=== PATIENT | male | born 1995 | race Caucasian/White ===

== ENCOUNTER 2018-05-12 17:05 | Emergency (ER) | payer BC ==
--- NOTE | 2018-05-12 17:14 | ER Report ---
History and Physical Time Seen By MD: 17:14 Hx. of Stated Complaint: pt has had bumb on the back of head for 3 years, thought it was a zit at first. still hasnt gone away HPI/ROS CHIEF COMPLAINT: Bump on back of head HISTORY OF PRESENT ILLNESS: 22-year-old male patient presents to emergency room with complaint of a bump on the back of his head. Patient states that he has had this for the past 3 years. He states that it has not caused him any problems, he states is not painful, he denies any changes in that time. Patient denies any fevers, chills, nausea, vomiting or diarrhea. Patient states that he became more concerned when he recently saw his dentist who did palpate his neck and said that the lump on the back of his head was normal. Allergies: Coded Allergies: No Known Drug Allergies (Unverified , 05/12/18) Past Medical/Surgical History Patient denies any pertinent medical or surgical history. Reviewed Nurses Notes: Yes Constitutional Vital Sign - Last 24 Hours 05/12/18 05/12/18 17:12 18:00 Temp 98.0 Pulse 63 Resp 14 B/P (MAP) 129/72 118/78 (91) Pulse Ox 96 O2 Delivery Room Air Physical Exam General appearance: Alert no distress. Respiratory: Chest is non tender, lungs are clear to auscultation. Cardiac: Regular rate and rhythm. Skin: Patient does have a lump located on the back of head, unable to ascertain whether it is a enlarged lymph node or sebaceous cyst. DIFFERENTIAL DIAGNOSIS: After history and physical exam differential diagnosis was considered for sebaceous cyst, enlarged lymph node. Medical Decision Making EKG/Imaging Imaging EXAMINATION: Ultrasound of the left posterior neck 05/12/2018 5:19 PM HISTORY: lump on the back of neck x3 years COMPARISON: None FINDINGS: Imaging of the area of palpable concern along the back of the neck on the left was done. There is a fairly smoothly marginated hypoechoic nodule measuring 1.1 x 0.6 x 0.9 cm. This deforms the undersurface of the skin is probably dermal in origin. This does not have the hilus of a lymph node. IMPRESSION: 1.1 cm hypoechoic nodule along the undersurface of the skin in the area of palpable concern in the left posterior neck. Based on location and appearance a sebaceous cyst or other dermal focus such as a dermal inclusion cyst would be favored. Report Dictated By: Smith Ness MD at 05/12/2018 5:58 PM Report E-Signed By: Smith Ness MD at 05/12/2018 6:00 PM ED Course/Re-evaluation ED Course Patient was admitted to an exam room, history and physical were obtained. Differential diagnoses were considered. On examination lungs are clear, heart is regular. Patient does have a nodule noted on the back of the head measuring approximately half a centimeter in diameter. An ultrasound was done to differentiate between a lymph node and a sebaceous cyst. That was more indicative of a sebaceous cyst or a dermoid cyst. I discussed the results with the patient. We discussed doing an I&D of the cyst. Patient was in agreement with that. That was done as described below. Patient tolerated procedure well. We will go ahead and discharge him home at this time. He is to follow-up with his primary care provider with any concerns. He is return to emergency room if condition worsens. Patient is to monitor for any signs of redness or infection. Patient verbalized understanding and agreement with plan. Procedure: Incision and drainage. The patient's cyst was located on the back of the head. I obtained verbal consent from the patient to drain the abscess who was informed about the po ssibility of bleeding and pain. The abscess was incised with a scalpel and a large amount of sebaceous material was expressed. The patient tolerated the procedure well. The procedure was performed by myself. Decision to Disposition Date: May 12, 2018 Decision to Disposition Time: 18:17 Depart Departure Latest Vital Signs Vital Signs Date Time Temp Pulse Resp B/P (MAP) Pulse Ox O2 Delivery O2 Flow Rate FiO2 05/12/18 18:00 118/78 (91) 05/12/18 17:12 98.0 63 14 96 Room Air Impression: Primary Impression: Sebaceous cyst Condition: Improved Disposition: HOME OR SELF-CARE Patient Instructions: Sebaceous cyst, not infected Additional Instructions: Keep area clean. Monitor for signs of infection; redness, swelling, heat, discharge, increasing pain or red streaking. Follow up if they occur. Follow up with your primary care provider as needed. Get plenty of rest. Take Tylenol or Ibuprofen as needed for pain. KELSIE UGARTE May 12, 2018 17:14
[2018-05-12 18:00] VITALS: BP 118/78
--- NOTE | 2018-05-12 18:04 | RADIOLOGY IMAGING REPORT ---
FACILITY: [facility] PATIENT NAME: Brayan Solares : 1995 MR: [id number] V: [id number] EXAM DATE: ORDERING PHYSICIAN: KELSIE UGARTE TECHNOLOGIST: Location: [facility] - [place], [place] Patient: Brayan Solares : 1995 Visit/Account:[id number] Date of Sevice: 05/12/2018 EXAMINATION: Ultrasound of the left posterior neck 05/12/2018 5:19 PM HISTORY: lump on the back of neck x3 years COMPARISON: None FINDINGS: Imaging of the area of palpable concern along the back of the neck on the left was done. T here is a fairly smoothly marginated hypoechoic nodule measuring 1.1 x 0.6 x 0.9 cm. This deforms the undersurface of the skin is probably dermal in origin. This does not have the hilus of a lymph node. IMPRESSION: 1.1 cm hypoechoic nodule along the undersurface of the skin in the area of palpable robert rn in the left posterior neck. Based on location and appearance a sebaceous cyst or other dermal focu s such as a dermal inclusion cyst would be favored. Report Dictated By: Smith Ness MD at 05/12/2018 5:58 PM Report E-Signed By: Smith Ness MD at 05/12/2018 6:00 PM WSN:[id number]
== END 2018-05-12 18:25 | disposition home or self-care (01) ==
LOC: ER 17:17
DX: L72.3 Sebaceous cyst (principal)
CPT/HCPCS: 76999; 99284